=== PATIENT | male | born 1965 | race African-American/Black ===

== ENCOUNTER 2019-06-04 07:08 | Day surgery (SDC) | payer MEDICARE, MEDICAID ==
--- NOTE | 2019-06-04 10:15 | OP ---
DATE OF PROCEDURE: 06/04/2019 BIOLOGICS SPECIALIST SURGEON: None. PROCEDURE PERFORMED: Esophagogastroduodenoscopy with biopsies. INDICATIONS: 1. Epigastric pain. 2. History of H. pylori gastritis, treated with triple therapy back in 2016. MEDICATIONS: See Anesthesia record. FINDINGS: After discussion of the risks, benefits, and alternatives of the procedure, informed consent was obtained and witnessed. Pre-endoscopic cardiopulmonary examination was satisfactory. Time-out was performed before sedation was achieved. Sedation was achieved with Anesthesia assistance in the endoscopy unit. A Pentax adult upper endoscope was placed into the oropharynx and passed through the cricopharyngeus under direct visualization. The esophageal mucosa appeared normal throughout with a normal-appearing Z-line at 45 cm from the incisors. The endoscope was then advanced into the stomach. Forward and retroflexed views of the entire gastric mucosa were obtained. The gastric mucosa appeared normal throughout. Biopsies were obtained from the gastric antrum and body to assess for H. pylori eradication. The endoscope was advanced through the pylorus and into the first and second portions of the duodenum, which also appeared normal. The upper endoscope was then completely withdrawn and the patient allowed to recover. The patient tolerated the procedure well. There were no immediate postprocedure complications. IMPRESSION: Normal esophagogastroduodenoscopy. Gastric biopsies obtained. RECOMMENDATION: 1. Follow up pathology and the gastric biopsies. 2. The patient's PPI can be decreased down to once daily dosing at this time. If the patient does well in the next month or two with no perceived clinical symptoms, could consider tapering completely off in the next 1 to 2 months. 3. Follow up in the GI clinic as needed. Job ID: [id number]
[2019-06-04] MEDS ORDERED: Lidocaine 1% PF 5 ML VIAL ONE (10:43)
[2019-06-04] MEDS ORDERED: PROPOFOL 200 MG/20 ML VIAL ONE (10:43)
== END 2019-06-04 10:43 ==
LOC: SDC 07:08
PROVIDERS: ATTEND Internal Medicine
PROC: 0DB68ZZ Excision of Stomach, Via Natural or Artificial Opening Endoscopic (ICD-10-PCS; principal; 2019-06-04)
DX: K29.50 Unspecified chronic gastritis without bleeding (principal); E78.00 Pure hypercholesterolemia, unspecified; F17.220 Nicotine dependence, chewing tobacco, uncomplicated; I10 Essential (primary) hypertension; Z86.19 Personal history of other infectious and parasitic diseases; Z88.8 Allergy status to other drugs, medicaments and biological substances
CPT/HCPCS: 88305; 88312; J2001; J2704

== ENCOUNTER 2020-03-09 09:55 | Outpatient (CLI) | payer MEDICARE, MEDICAID ==
--- NOTE | 2020-03-10 09:29 | CT ---
CT HEART WITHOUT CONTRAST FOR CORONARY CALCIUM SCORING: Date: 03/09/2020 Axial tomograms obtained through the heart without IV enhancement. INDICATION: Hyperlipidemia. Assess coronary calcium score. FINDINGS: Left main: Score of 0 LAD: Score of 4 Circumflex: Score of 0 Right coronary: Score of 1 Posterior descending: Score of 0 Total Score: 5 Soft Tissues: Visualized lung aquino are clear. The visualized mediastinum shows a mildly distended esophagus with air fluid level. This would suggest reflux. Recommend clinical correlation and endosco py as indicated. Osseous Structures: Unremarkable. IMPRESSION: 1. Coronary calcium score of 5, indicates minimal identifiable plaque. Low risk of coronary artery d isease. 2. Mild dilatation of the thoracic esophagus with air fluid level. Recommend clinical correlation an d consider endoscopy as indicated. POS: JANE
== END 2020-03-09 09:56 | disposition home or self-care (01) ==
LOC: BICCT 09:55
PROVIDERS: ATTEND Family Medicine
DX: E78.5 Hyperlipidemia, unspecified (principal); E78.00 Pure hypercholesterolemia, unspecified; I10 Essential (primary) hypertension; R07.9 Chest pain, unspecified; K22.8 Other specified diseases of esophagus
CPT/HCPCS: 75571